=== PATIENT | male | born 1970 | race Caucasian/White ===

== ENCOUNTER 2018-07-10 08:45 | Day surgery (SDC) | payer OTHER ==
[~2018-07-10] VITALS: Ht 185.4 cm; Wt 104.3 kg
[~2018-07-10 08:45] MED LIST: ASPI1TAB PO; ATOR80TA59 PO; LISI-542 PO; METO1TAB33 PO
[2018-07-10] MEDS ORDERED: NS 1,000 ML IV SCH (09:45)
[2018-07-10] MEDS ORDERED: PROPOFOL 200 MG/20 ML VIAL As Ordered ONE (10:12)
[2018-07-10] MEDS ORDERED: LIDOCAINE 2% INJ 100 MG/5 ML SDV (FOR ANES.) As Ordered ONE (10:12)
--- NOTE | 2018-07-10 10:28 | ROOR ---
Patient Name: Luis Fernando Valle Procedure Date: 07/10/2018 10:05 AM Date of : 1970 Age: 47 Room: [facility] Gender: Male Note Status: Finalized Procedure: Colonoscopy Indications: High risk colon cancer surveillance: Personal history of colonic polyps, Last colonoscopy: February 2015 Providers: Wilbur CUELLO MD Referring MD: DELMER Holden PA-C Requesting Provider: Medicines: Monitored Anesthesia Care Complications: No immediate complications. Procedure: Pre-Anesthesia Assessment: - The heart rate, respiratory rate, oxygen saturations, blood pressure, adequacy of pulmonary ventilation, and response to care were monitored throughout the procedure. The Colonoscope was introduced through the anus and advanced to the terminal ileum, with identification of the appendiceal orifice and IC valve. The colonoscopy was performed without difficulty. The patient tolerated the procedure well. The quality of the bowel preparation was good. Findings: The perianal and digital rectal examinations were normal. A 5 mm polyp was found in the sigmoid colon. The polyp was sessile. The polyp was removed with a cold snare. Resection and retrieval were complete. The exam was otherwise without abnormality on direct and retroflexion views. Impression: - One 5 mm polyp in the sigmoid colon, removed with a cold snare. Resected and retrieved. - Small Internal hemorrhoids. - The colon examination was otherwise normal on direct and retroflexion views. Recommendation: - Repeat colonoscopy in 5 years for surveillance. Wilbur Cuello MD Wilbur CUELLO MD 07/10/2018 10:27:48 AM This report has been signed electronically. Number of Addenda: 0 Note Initiated On: 07/10/2018 10:05 AM Estimated Blood Loss: Estimated blood loss: none.
[2018-07-10 10:30] VITALS: BP 129/81
== END 2018-07-10 10:59 | disposition home or self-care (01) ==
LOC: M OPP 08:45
PROVIDERS: ATTEND Internal Medicine Gastroenterology
DX: D12.5 Benign neoplasm of sigmoid colon (principal); K64.8 Other hemorrhoids; Z86.010 Personal history of colon polyps

== ENCOUNTER → 2019-07-09 | Outpatient (CLI) | payer OTHER ==
[~2019-07-09] MED LIST changes: -ASPI1TAB PO; +ASPI81TA26 PO
== END ==
LOC: M PLALAB 11:02
PROVIDERS: ATTEND Internal Medicine Cardiovascular Disease
DX: E78.00 Pure hypercholesterolemia, unspecified (principal)

== ENCOUNTER → 2020-06-26 | Outpatient (REF) | payer OTHER ==
[2020-06-26 11:42] LABS: HEMATOCRIT 52.6 % (42.0-52.0); HEMOGLOBIN 17.9 g/dl (13.5-17.5); MEAN CORPUSCULAR VOLUME 88.1 fl (80.0-96.0); PLATELET COUNT, AUTOMATED 165 10^3/uL (150-450); RED BLOOD COUNT 5.97 10^6/uL (4.30-6.10); WHITE BLOOD COUNT 6.2 10^3/uL (4.0-10.0)
[2020-06-26 12:24] LABS: BLOOD UREA NITROGEN 16 MG/DL (7-18); CALCIUM LEVEL 9.6 MG/DL (8.5-10.1); CARBON DIOXIDE LEVEL 30 MEQ/L (21-32); CHLORIDE LEVEL 104 MEQ/L (98-107); CHOLESTEROL LEVEL 141 MG/DL (<200); CHOLESTEROL RISK RATIO 3.525 (<5); CREATININE FOR GFR 1.21 MG/DL (0.70-1.30); GLOMERULAR FILTRATION RATE > 60.0 (>56); GLUCOSE, FASTING 96 MG/DL (70-100); HDL CHOLESTEROL 40 MG/DL (>40); LDL CHOLESTEROL 69 MG/DL (<100); NON-HDL-C 101 MG/DL; POTASSIUM SERUM 4.2 MEQ/L (3.5-5.1); SODIUM LEVEL 138 MEQ/L (136-145); TRIGLYCERIDES LEVEL 161 MG/DL (<150)
== END ==
LOC: M LABDRWAD 10:43
DX: E78.00 Pure hypercholesterolemia, unspecified (principal)

== ENCOUNTER → 2020-10-15 | Outpatient (CLI) | payer OTHER ==
[~2020-10-15] MED LIST changes: +CRES20TA2 PO; -LISI-542 PO; +LISI-898 PO
--- NOTE | 2020-10-15 08:19 | REP ---
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 COMPARISON: Comparison is made with imaging from chest CT May 31, 2010.. TECHNIQUE: Left upper quadrant sonography. FINDINGS: Scanning through the left upper quadrant of the abdomen demonstrates homogeneous spleen measuring 13.9 by 10.0 x 5.0. The spleen is felt to be mildly enlarged. No focal splenic lesion is seen. There is no evidence of ascites or left renal abnormality. The left kidney measures 11.5 x 4.8 x 6.5 cm. IMPRESSION: Mildly prominent spleen, 13.9 cm in greatest dimension. The spleen is incompletely imaged in the field of view in the 2009 CT study however, it demonstrates a 13.1 cm greatest dimension. Apparently similar in size today. <Electronically signed by Kirk Alvarado > 10/15/20 [id number]
== END ==
LOC: M RAD 07:33
PROVIDERS: ATTEND Specialist
DX: R16.1 Splenomegaly, not elsewhere classified (principal)

== ENCOUNTER → 2025-07-12 | Outpatient (REF) | payer OTHER ==
[~2025-07-12] MED LIST changes: -LISI-898 PO; +LISI5TAB11 PO
[2025-07-12 13:52] LABS: BASO # 0.0 10^3/uL (0.0-0.2); BASO % 0.3 % (0.0-1.0); EOS # 0.1 10^3/uL (0.0-0.5); EOS % 1.2 % (0.0-3.0); LYMPH # 1.8 10^3/uL (1.5-5.0); LYMPH % 31.2 % (24.0-44.0); MONO # 0.5 10^3/uL (0.0-0.8); MONO % 8.2 % (2.0-8.0); NEUTROPHILS # 3.4 10^3/uL (1.5-8.5); NEUTROPHILS % 58.9 % (36.0-66.0); PLATELET COUNT, AUTOMATED 189 10^3/uL (150-450)
[2025-07-12 14:09] LABS: ALT/SGPT 36 U/L (7.0-40); AST/SGOT 23 U/L (<34); CALCIUM LEVEL 9.1 MG/DL (8.5-10.1); CARBON DIOXIDE LEVEL 29 MMOL/L (20-31); CHLORIDE LEVEL 102 MMOL/L (98-107); CREATININE FOR GFR 0.97 MG/DL (0.70-1.30); GLOMERULAR FILTRATION RATE > 90.0 (>56); POTASSIUM SERUM 4.4 MMOL/L (3.5-5.1); SODIUM LEVEL 140 MMOL/L (136-145)
== END ==
LOC: M LABDRWAD 12:54
PROVIDERS: ATTEND Specialist
DX: D75.1 Secondary polycythemia (principal)